=== PATIENT | male | born 1960 | race Caucasian/White ===

== ENCOUNTER 2021-03-19 19:44 | Emergency (ER) | payer OTHER ==
[2021-03-19] MEDS ORDERED: SODIUM CHLORIDE 1,000 ML IV ONE (19:51)
[2021-03-19] MEDS ORDERED: LORazepam 2 MG/ML SDV VIAL ONE (20:11)
[2021-03-19] MEDS ORDERED: LORazepam 2 MG/ML SDV VIAL IVPUSH ONE (20:15)
[2021-03-19 20:29] LABS: BASO % 1.5 % (0-2.0); EOS % 0.1 % (0-4.5); HEMATOCRIT 50.7 % (35.4-49); LYMPH % 14.2 % (8-40); MCH 29.3 pg (25.7-33.7); MCHC 33.4 g/dl (32.0-35.9); MEAN CELL VOLUME 87.6 fl (80-96); MEAN PLT VOLUME 9.3 fl (7.5-11.1); NEUT % 79.2 % (42.8-82.8); PLATELET COUNT 214 10^3/uL (134-434); RBC 5.78 M/mm3 (4.00-5.60); RDW 13.2 % (11.9-15.9)
[2021-03-19 20:36] LABS: ALBUMIN 5.4 g/dl (3.4-5.0); BILIRUBIN,TOTAL 0.8 mg/dl (0.2-1); CALCIUM 10.5 mg/dl (8.5-10); CREATININE 1.4 mg/dl (0.55-1.3); TOT PROT 9.1 g/dl (6.4-8.2)
[2021-03-19 20:38] VITALS: TEMP 98.1
[2021-03-19 21:09] VITALS: BP 154/92; PULSE 74
== END 2021-03-19 21:57 | disposition home or self-care (01) ==
LOC: FER 19:44
PROC: 3E033GC Introduction of Other Therapeutic Substance into Peripheral Vein, Percutaneous Approach (ICD-10-PCS; principal; 2021-03-19)
DX: T67.2XXA Heat cramp, initial encounter (principal)
CPT/HCPCS: 36415; 80053; 82550; 82553; 85025; 96361; 96374; 99284-25